=== PATIENT | female | born 1945 | race Caucasian/White ===

== ENCOUNTER 2019-03-02 17:41 | Emergency (ER) | payer OTHER, BC ==
[2019-03-02 17:47] VITALS: TEMP 97.7; BMI 24.5
--- NOTE | 2019-03-02 19:25 | PDOC ---
History of Present Illness - General Chief Complaint: Injury Stated Complaint: FALL HITING HEAD Time Seen by Provider: 03/02/19 18:07 - History of Present Illness Initial Comments: Ms. Almendarez is a 73 y/o female with PMH of HTN and HLD, on aspirin, presenting s /p fall. Reports that she slipped off two steps and fell to her side and hit the right posterior aspect of her head on concrete. Denies LOC. Denies nausea/ vomiting. Denies heart palpitations or dizziness prior. Denies vision changes. No anticoagulants except aspirin. Past History - Past Medical History Allergies/Adverse Reactions: Allergies Allergy/AdvReac Type Severity Reaction Status Date / Time No Known Allergies Allergy Verified 03/02/19 17:46 Home Medications: Ambulatory Orders NK [No Known Home Medication] 03/02/19 COPD: No HTN: Yes Hypercholesterolemia: Yes - Psycho Social/Smoking Cessation Hx Smoking History: Never smoked Review of Systems - Review of Systems Comments:: GENERAL/CONSTITUTIONAL: No fever or chills. No weakness._ HEAD, EYES, EARS, NOSE AND THROAT: No change in vision. No change in hearing. No sore throat._ CARDIOVASCULAR: No chest pain or shortness of breath_ RESPIRATORY: Denies cough, hemoptysis_ GASTROINTESTINAL: No nausea, vomiting, diarrhea or constipation._ GENITOURINARY: No dysuria, frequency, or change in urination._ MUSCULOSKELETAL: No joint or muscle swelling or pain. No neck or back pain._ SKIN: No rash_ NEUROLOGIC: No headache, vertigo, loss of consciousness, or change in strength/ sensation._ ENDOCRINE: No increased thirst. No abnormal weight change_ HEMATOLOGIC/LYMPHATIC: No anemia, easy bleeding, or history of blood clots._ ALLERGIC/IMMUNOLOGIC: No hives or skin allergy._ *Physical Exam - Vital Signs Last Vital Signs Temp Pulse Resp BP Pulse Ox 97.7 F 97 H 18 181/63 H 99 03/02/19 17:43 03/02/19 17:43 03/02/19 17:43 03/02/19 17:43 03/02/19 17:43 - Physical Exam Comments: GENERAL: Awake, alert, and oriented to person/place/time, in no acute distress_ HEAD: 3 cm linear laceration over superior posterior right aspect of scalp. EYES: PERRLA, EOMI, sclera anicteric, conjunctiva clear_ ENT: Hearing grossly normal, nares patent, oropharynx clear without exudates. No uvular deviation. Moist mucosa_ NECK: Normal ROM, supple, no lymphadenopathy, JVD, or masses_ LUNGS: No distress, speaks in full sentences, clear to auscultation bilaterally _ HEART: Regular rate and rhythm, normal S1 and S2, no murmurs appreciated, peripheral pulses normal and equal bilaterally._ ABDOMEN: Soft, nontender, normoactive bowel sounds. No guarding, no rebound. No masses_ EXTREMITIES: Normal inspection, Normal range of motion, no edema. No clubbing or cyanosis_ NEUROLOGICAL: Cranial nerves II through XII grossly intact. Normal speech, normal gait. Cerebellar testing intact. 5/5 strength and sensation bilaterally. SKIN: Warm, Dry, normal turgor, no rashes or lesions noted_ Procedures - Laceration/Wound Repair Right Posterior Head Wound Length: 2.6 to 5.0 cm (3 cm) Wound Explored: clean, no foreign body present Wound's Depth, Shape: superficial, linear Irrigated w/ Saline: Yes Anesthesia: 1% Lidocaine Amount of Anesthetic (ccs): 11 Wound Debrided: minimal Wound Repaired With: Kirk Number of Sutures: 7 Layer Closure: No Splint Applied: No Sling Applied: No ED Treatment Course - RADIOLOGY Radiology Studies Ordered: Category Date Time Status HEAD CT WITHOUT CONTRAST [CT] Stat CT Scan 03/02/19 19:16 Ordered Medical Decision Making - Medical Decision Making 03/02/19 19:20 73F presenting after fall and laceration after hitting her head on the concrete. Denies LOC. -CT head -lac repair 03/02/19 21:15 CT head shows no acute intracranial hemorrhage or acute intracranial pathology. Plan to d/c home, f/u PCP for staple removal in 7-10 days. -boostrix Discharge - Discharge Information Problems reviewed: Yes Clinical Impression/Diagnosis: Laceration Fall Qualifiers: Encounter type: initial encounter Qualified Code(s): W19.XXXA - Unspecified fall, initial encounter Condition: Stable Disposition: HOME - Admission No - Follow up/Referral Referrals: Josias Lorenzo MD, MD [Primary Care Provider] - - Patient Discharge Instructions Patient Printed Discharge Instructions: DI for Suture Removal, DI for Laceration Repair -- Kirk Additional Instructions: Please see your primary care physician (Dr. Lorenzo) in 7-10 days for staple removal. Please keep the wound area clean. You may wash your hair as you usually do. If you experience any new, worsening, or concerning symptoms, including loss of consciousness, weakness, lethargy, frequent falls, or any other concerns, please return to the emergency department. - Post Discharge Activity
--- NOTE | 2019-03-02 20:31 | PDOC ---
Documentation entered by Charu Heaton SCRIBE, acting as scribe for Dora Ferrara MD. Dora Ferrara MD: This documentation has been prepared by the donaldibe, Charu Heaton SCRIBE, under my direction and personally reviewed by me in its entirety. I confirm that the documentation accurately reflects all work, treatment, procedures, and medical decision making performed by me. Attending Attestation - Resident Resident Name: German Das - ED Attending Attestation I have performed the following: I have examined & evaluated the patient, The case was reviewed & discussed with the resident, I agree w/resident's findings & plan, Exceptions are as noted - HPI HPI: 03/02/19 19:11 73-year-old female missed 2 steps earlier today and fell hitting her head on the concrete. No LOC. She takes aspirin but is not on any other anticoagulation. - Physicial Exam PE: 03/02/19 19:12 Nourished well developed 73-year-old female presents status post falling Head there is a 2 cm laceration on her scalp Neck no midline cervical tenderness Lungs clear to auscultation bilaterally CVS regular rate and rhythm S1-S2 Abdomen flat nontender Skin warm and dry Neuro she is alert and oriented x3, motor strength 5 out of 5 bilaterally - Medical Decision Making 03/02/19 19:17 imp head trauma /scalp laceration 03/02/19 19:[address] head this was a witnessed fall 03/02/19 20:30 tetanus update 03/02/19 21:09 CAT scan of the head shows cerebral atrophy, chronic microvascular ischemic changes, no acute intracranial hemorrhage or acute infarction, no skull fracture and unremarkable paranasal sinuses, mild left maxillary chronic sinus changes Patient received 7 cony to close her scalp laceration plan staple removal in 1 week, d/c home
[2019-03-02] MEDS ORDERED: LIDOCAINE HCL 1%, 10 MG/ML (50 mL VIAL) SQ ONE (20:40)
[2019-03-02] MEDS ORDERED: LIDOCAINE HCL 1%, 10 MG/ML (20ML VIAL) ONE (20:42)
[2019-03-02] MEDS ORDERED: DIPHTH,PERTUSS(ACELL),TET 0.5 ML DISP.SYRIN IM ONE ×3 (20:58→21:41)
[2019-03-02 22:01] VITALS: BP 152/62; PULSE 87
== END 2019-03-02 21:35 | disposition home or self-care (01) ==
LOC: JER 17:41
PROC: 0HQ0XZZ Repair Scalp Skin, External Approach (ICD-10-PCS; principal; 2019-03-02)
PROC: 3E0234Z Introduction of Serum, Toxoid and Vaccine into Muscle, Percutaneous Approach (ICD-10-PCS; 2019-03-02)
PROC: 3E013BZ Introduction of Anesthetic Agent into Subcutaneous Tissue, Percutaneous Approach (ICD-10-PCS; 2019-03-02)
DX: S01.01XA Laceration without foreign body of scalp, initial encounter (principal); W10.8XXA Fall (on) (from) other stairs and steps, initial encounter; Y93.89 Activity, other specified; Y92.018 Other place in single-family (private) house as the place of occurrence of the external cause; Y99.8 Other external cause status; I10 Essential (primary) hypertension; E78.5 Hyperlipidemia, unspecified; E78.00 Pure hypercholesterolemia, unspecified; Z79.82 Long term (current) use of aspirin
CPT/HCPCS: 12002-25; 70450-TC; 90471; 90715; 96372; 99283-25

== ENCOUNTER 2021-09-06 07:04 | Day surgery (SDC) | payer OTHER, BC ==
[2021-09-01 10:33] VITALS: BMI 25.5
[2021-09-06] MEDS ORDERED: OFLOXACIN 0.3% OPHTHALMIC SOLUTION 5 ML BOTTLE ONE (07:17)
[2021-09-06] MEDS ORDERED: CYCLOPENTOLATE HCL 1% OPHTH SOLN 2 ML BOTTLE ONE (07:17)
[2021-09-06] MEDS ORDERED: KETOROLAC TROMETHAMINE 0.5% EYE DROP 1 DROP DROPS ONE (07:17)
[2021-09-06] MEDS ORDERED: PHENYLEPHRINE 2.5% OPHTH SOLN 15 ML BOTTLE ONE (07:17)
[2021-09-06] MEDS ORDERED: TROPICAMIDE 1% OPHTH SOLN 15 ML BOTTLE ONE (07:17)
[2021-09-06] MEDS: OFLOXACIN 0.3% OPHTHALMIC SOLUTION 5 ML BOTTLE OD SCH ×3 (07:30→07:40)
[2021-09-06] MEDS: KETOROLAC TROMETHAMINE 0.5% EYE DROP 1 DROP DROPS OD SCH ×3 (07:30→07:40)
[2021-09-06] MEDS: TROPICAMIDE 1% OPHTH SOLN 15 ML BOTTLE OD SCH ×3 (07:30→07:40)
[2021-09-06] MEDS: PHENYLEPHRINE 2.5% OPHTH SOLN 15 ML BOTTLE OD SCH ×3 (07:30→07:40)
[2021-09-06] MEDS: CYCLOPENTOLATE HCL 1% OPHTH SOLN 2 ML BOTTLE OD SCH ×3 (07:30→07:40)
[2021-09-06 07:35] VITALS: TEMP 97.8
[2021-09-06] MEDS ORDERED: BACITRACIN/POLYMYXIN OPH OINT 3.5 GM TUBE ONE (07:44)
[2021-09-06] MEDS ORDERED: EPI-SHUGARCAINE (EPINEPHRINE 0.025% & LIDOCAINE-PF 0.75%) 4ML ONE (07:44)
[2021-09-06] MEDS ORDERED: POVIDONE-IODINE 5% OPHTHALMIC PREP 30 ML SOLUTION ONE (07:44)
[2021-09-06] MEDS ORDERED: NEO/POLYMYX B SULF/DEXAMETH OPHTHALMIC 5ML BOTTLE ONE (07:45)
[2021-09-06] MEDS ORDERED: MIDAZOLAM HCL 2 MG/2 ML SINGLE DOSE VIAL ONE (09:12)
[2021-09-06] MEDS ORDERED: ACETAMINOPHEN 325 MG TABLET (FP) PO PRN (10:01)
[2021-09-06 10:35] VITALS: BP 138/78; PULSE 69
== END 2021-09-06 10:45 | disposition home or self-care (01) ==
LOC: FASU 07:04
PROVIDERS: ATTEND Ophthalmology
PROC: 08RJ3JZ Replacement of Right Lens with Synthetic Substitute, Percutaneous Approach (ICD-10-PCS; principal; 2021-09-06 09:26)
DX: H25.9 Unspecified age-related cataract (principal)
CPT/HCPCS: 66984; V2632

== ENCOUNTER 2021-10-11 06:13 | Day surgery (SDC) | payer OTHER, BC ==
[2021-10-04 13:05] VITALS: BMI 25.5
[2021-10-11] MEDS ORDERED: TROPICAMIDE 1% OPHTH SOLN 15 ML BOTTLE ONE (06:37)
[2021-10-11] MEDS ORDERED: CYCLOPENTOLATE HCL 1% OPHTH SOLN 2 ML BOTTLE ONE (06:37)
[2021-10-11] MEDS ORDERED: OFLOXACIN 0.3% OPHTHALMIC SOLUTION 5 ML BOTTLE ONE (06:37)
[2021-10-11] MEDS ORDERED: KETOROLAC TROMETHAMINE 0.5% EYE DROP 1 DROP DROPS ONE (06:37)
[2021-10-11] MEDS ORDERED: PHENYLEPHRINE 2.5% OPHTH SOLN 15 ML BOTTLE ONE (06:37)
[2021-10-11] MEDS ORDERED: CYCLOPENTOLATE HCL 1% OPHTH SOLN 2 ML BOTTLE OS ONE ×3 (07:00→07:10)
[2021-10-11] MEDS ORDERED: OFLOXACIN 0.3% OPHTHALMIC SOLUTION 5 ML BOTTLE OS ONE ×3 (07:00→07:10)
[2021-10-11] MEDS ORDERED: TROPICAMIDE 1% OPHTH SOLN 15 ML BOTTLE OS SCH (07:00)
[2021-10-11] MEDS ORDERED: KETOROLAC TROMETHAMINE 0.5% EYE DROP 1 DROP DROPS OS ONE ×3 (07:00→07:10)
[2021-10-11] MEDS ORDERED: PHENYLEPHRINE 2.5% OPHTH SOLN 15 ML BOTTLE OS SCH (07:00)
[2021-10-11] MEDS ORDERED: KETOROLAC TROMETHAMINE 0.5% EYE DROP 1 DROP DROPS OS SCH (07:00)
[2021-10-11] MEDS ORDERED: OFLOXACIN 0.3% OPHTHALMIC SOLUTION 5 ML BOTTLE OS SCH (07:00)
[2021-10-11] MEDS ORDERED: CYCLOPENTOLATE HCL 1% OPHTH SOLN 2 ML BOTTLE OS SCH (07:00)
[2021-10-11] MEDS ORDERED: TROPICAMIDE 1% OPHTH SOLN 15 ML BOTTLE OS ONE ×3 (07:00→07:10)
[2021-10-11] MEDS ORDERED: PHENYLEPHRINE 2.5% OPHTH SOLN 15 ML BOTTLE OS ONE ×3 (07:00→07:10)
[2021-10-11] MEDS ORDERED: POVIDONE-IODINE 5% OPHTHALMIC PREP 30 ML SOLUTION ONE (07:43)
[2021-10-11] MEDS ORDERED: TETRACAINE 0.5% OPHTH SOLN 2 ML BOTTLE ONE (07:43)
[2021-10-11] MEDS ORDERED: BACITRACIN/POLYMYXIN OPH OINT 3.5 GM TUBE ONE (07:43)
[2021-10-11] MEDS ORDERED: EPI-SHUGARCAINE (EPINEPHRINE 0.025% & LIDOCAINE-PF 0.75%) 4ML ONE (07:43)
[2021-10-11] MEDS ORDERED: BETAXOLOL HCL 0.25% OPHTHALMIC 10 ML DROPSBTL ONE (07:43)
[2021-10-11] MEDS ORDERED: NEO/POLYMYX B SULF/DEXAMETH OPHTHALMIC 5ML BOTTLE ONE (07:44)
[2021-10-11] MEDS ORDERED: MIDAZOLAM HCL 2 MG/2 ML SINGLE DOSE VIAL ONE (08:03)
[2021-10-11] MEDS ORDERED: ACETAMINOPHEN 325 MG TABLET (FP) PO PRN (09:08)
[2021-10-11 09:42] VITALS: PULSE 61
[2021-10-11 10:02] VITALS: BP 140/70; TEMP 97.1
== END 2021-10-11 10:02 | disposition home or self-care (01) ==
LOC: FASU 06:13
PROVIDERS: ATTEND Ophthalmology
PROC: 08RK3JZ Replacement of Left Lens with Synthetic Substitute, Percutaneous Approach (ICD-10-PCS; principal; 2021-10-11 08:34)
DX: H25.89 Other age-related cataract (principal)
CPT/HCPCS: 66984; V2632